=== PATIENT | male | born 1965 | race Caucasian/White ===

== ENCOUNTER → 2021-02-07 13:31 | Outpatient (BNVA) | payer BC, SELFPAY | PROVIDERS: PCP Nurse Practitioner Family; Visit Provider Nurse Practitioner Family | DX: Z12.5 Encounter for screening for malignant neoplasm of prostate (principal); R06.02 Shortness of breath; Z13.6 Encounter for screening for cardiovascular disorders; Z12.11 Encounter for screening for malignant neoplasm of colon; Z12.2 Encounter for screening for malignant neoplasm of respiratory organs; Z00.00 Encounter for general adult medical examination without abnormal findings; Z68.24 Body mass index [BMI] 24.0-24.9, adult | CPT/HCPCS: 80053; 80061; 84443; 85025; G0103 ==

== ENCOUNTER → 2023-04-11 11:19 | Outpatient (BNVA) | payer BC, SELFPAY | PROVIDERS: PCP Nurse Practitioner Family; Visit Provider Nurse Practitioner Family | DX: Z00.00 Encounter for general adult medical examination without abnormal findings (principal); Z13.6 Encounter for screening for cardiovascular disorders; Z12.2 Encounter for screening for malignant neoplasm of respiratory organs; Z12.11 Encounter for screening for malignant neoplasm of colon; F17.200 Nicotine dependence, unspecified, uncomplicated | CPT/HCPCS: 80053; 80061; 84443; 85025 ==

== ENCOUNTER 2023-04-27 13:12 | Outpatient (CLI) | payer BC, SELFPAY ==
--- NOTE | 2023-04-27 13:15 | CT_ITS ---
WS: [id number] LDCT LUNG CANCER SCREENING HISTORY: Z12.2 - Encounter for screening for malignant neoplasm of... TECHNIQUE: Axial imaging performed from the apices to 1 cm below the costophrenic angles. Coronal and sagittal reformats are submitted with axial MIP series. All CT scans at [facility] use at least one of these dose optimization techniques: automated exposure control; mA and/or kV adjustment per patient size (includes targeted exams where dose is matched to clinical indication); or iterativ e reconstruction. DLP: 61.07 mGy.cm DIvol: Mean CTDIvol: 0.90 (mGy) COMPARISON: None available. Diagnostic quality: Satisfactory Lungs: Pulmonary hyperexpansion. No pulmonary mass, nodule or endobronchial lesions. Heart: Normal size heart with no pericardial effusion.. Other findings: Mild atherosclerosis aorta. No mediastinal or hilar adenopathy. No adrenal mass. IMPRESSION: CT/CT lung screening 31817 LUNG-RADS: 1-Negative FOLLOW UP: 12 Month: Continue annual screening with LDCT OTHER FINDINGS (S MODIFIER): None.
== END 2023-04-27 13:13 | disposition home or self-care (01) ==
PROVIDERS: PCP Nurse Practitioner Family; Visit Provider Nurse Practitioner Family
DX: Z12.2 Encounter for screening for malignant neoplasm of respiratory organs (principal); F17.210 Nicotine dependence, cigarettes, uncomplicated
CPT/HCPCS: 71271

== ENCOUNTER 2023-05-16 07:00 | Day surgery (SDC) | payer BC, SELFPAY ==
[2023-05-16 07:10] VITALS: BP 123/72; PULSE 72; RESP 18; TEMP 36.3; O2SAT 97
--- NOTE | 2023-05-16 07:19 | ANES.PREANE2 ---
Pre-Anesthetic Assessment Height/Weight: Height 1.7 m Weight 68.039 kg Temp Pulse Resp BP Pulse Ox O2 Del Method 97.3 F L 72 18 123/72 97 Room Air 05/16/23 07:10 05/16/23 07:10 05/16/23 07:10 05/16/23 07:10 05/16/23 07:10 05/16/23 07:10 Preop Diagnosis: screening Operation Date: 05/16/23 08:00 [place] Procedures p [id number] colon G0121 screen colon A risk Z12.11(Not Applicable) - Nicolas Merida DO Was Beta Gris taken within 24 hours: N/A Was Clonidine taken within 24 hours: N/A Last intake: Intake Last Liquid Date 05/15/23 Last Liquid Time 20:00 Last Solid Date 05/14/23 Last Solid Time 19:00 Last Intake: 22:00 Social Tobacco Exam alert, oriented x 3, clear to auscultation bilaterally and regular rate & rhythm Airway Submandibular: within normal limits Cervical ROM: within normal limits Mallampati: Class II Dentition: full History/ROS No significant history except as noted and No significant complaints Pulmonary None reported CV/HEM None reported None reported Hepatic None reported GI None reported Metabolic None reported Musc/skel None reported Neuropsych None reported Anesthetic Plan Anesthesia: MAC Risk of > 500 ml blood loss (7ml/kg in children): Yes, adequate IV access and fluids planned Medications/Allergies Home Medications Medication Instructions Recorded Confirmed Last Taken Type varenicline 0.5 mg (11)-1 mg (42) See Rx Instructions PO PER PKG DIR 04/11/23 05/14/23 Unknown Rx tablets in a dose pack (Chantix #53 ea Starting Month Box) varenicline 1 mg tablet (Chantix 1 mg PO BID #60 tabs 04/11/23 05/14/23 Unknown Rx Continuing Month Box) Allergies Allergy/AdvReac Type Severity Reaction Status Date / Time No Known Allergies Allergy Verified 04/13/23 09:33 [facility] Anesthesia Family History Father Cancer Denies family history of Diabetes CAD (coronary artery disease) Clotting disorder Hyperlipidemia Chronic kidney disease (CKD) Suicide Bleeding disorder Lung disease Hypertension Stroke Social History Smoking and tobacco/nicotine status: current every day tobacco/nicotine user cigarettes Packs smoked per day: 1 Years cigarettes smoked: 36 [ Other cigarette details: 0.5ppd currently ] Alcohol intake: current Alcohol intake frequency: holidays/special occasions only Alcohol type: beer Substance/Drug Use: never Adopted: No Lives independently: Yes Household members: spouse Housing: House Marital status: Number of children: 5 Number of grandchildren: 13 Highest education level completed: High School Graduate service: No Current occupational status: employed Pets and animals: Yes Current gender identity: Male Data Anesthesia Cardiac Studies: No Data to Display
[2023-05-16] MEDS: sodium chloride 0.9% 1,000 ML 30 ML IV (07:29)
--- NOTE | 2023-05-16 08:00 | PM.HP ---
Providers/Chief Complaint Primary Care Provider: GILL Porras Chief Complaint: Z12.11 History of Present Illness Ankit Diggs is a 58 year old male Review of Systems General: Reports: 10 or more systems reviewed and unremarkable except in HPI and below Medications/Allergies Home Medications Medication Instructions Recorded Confirmed Last Taken Type varenicline 0.5 mg (11)-1 mg (42) See Rx Instructions PO PER PKG DIR 04/11/23 05/14/23 Unknown Rx tablets in a dose pack (Chantix #53 ea Starting Month Box) varenicline 1 mg tablet (Chantix 1 mg PO BID #60 tabs 04/11/23 05/14/23 Unknown Rx Continuing Month Box) Allergies Allergy/AdvReac Type Severity Reaction Status Date / Time No Known Allergies Allergy Verified 04/13/23 09:33 PFSH Acute PFSH: Family History Father Cancer Denies family history of Diabetes CAD (coronary artery disease) Clotting disorder Hyperlipidemia Chronic kidney disease (CKD) Suicide Bleeding disorder Lung disease Hypertension Stroke Social History Smoking and tobacco/nicotine status: current every day tobacco/nicotine user cigarettes Packs smoked per day: 1 Years cigarettes smoked: 36 [ Other cigarette details: 0.5ppd currently ] Alcohol intake: current Alcohol intake frequency: holidays/special occasions only Alcohol type: beer Substance/Drug Use: never Adopted: No Lives independently: Yes Household members: spouse Housing: House Marital status: Number of children: 5 Number of grandchildren: 13 Highest education level completed: High School Graduate service: No Current occupational status: employed Pets and animals: Yes Current gender identity: Male Vitals/I&O/Wt Last Vital Signs Temp 97.3 F L 05/16/23 07:10 Pulse 72 05/16/23 07:10 Resp 18 05/16/23 07:10 BP 123/72 05/16/23 07:10 Pulse Ox 97 05/16/23 07:10 O2 Del Method Room Air 05/16/23 07:10 Weight last 48 hrs Weight 150 lb A&P Assessment and plan (1) Colon cancer screening: Plan Colonoscopy Attestations Medical Necessity Statement*: Home Coding Level of Care Code Acute Code for Chg Fwd Diagnoses Colon cancer screening Z12.11
[2023-05-16 08:17] VITALS: BP 105/67; PULSE 66; RESP 12; TEMP 36.1; O2SAT 98
[2023-05-16 08:25] VITALS: BP 114/79; PULSE 68; RESP 18; O2SAT 98
[2023-05-16 08:32] VITALS: BP 106/75; PULSE 70; RESP 18; O2SAT 99
--- NOTE | 2023-05-16 08:45 | ANE.PACU2 ---
Inpatient post-anesthesia follow up: Airway intact: Yes Vital signs: Temperature 97.0 F Pulse Rate 70 Respiratory Rate 18 Blood Pressure 106/75 Pulse Oximetry 99 Oxygen Delivery Me thod Room Air Oxygen Flow Rate Fraction of Inspir ed Oxygen Hydration adequate: Yes Nausea and vomiting: No Pain level: 1 Mental status: Baseline
== END 2023-05-16 08:45 | disposition home or self-care (01) ==
PROVIDERS: PCP Nurse Practitioner Family; Visit Provider Surgery
PROC: 0DJD8ZZ Inspection of Lower Intestinal Tract, Via Natural or Artificial Opening Endoscopic (ICD-10-PCS; CPT 45378; principal; 2023-05-16 08:00)
DX: Z12.11 Encounter for screening for malignant neoplasm of colon (principal); F17.210 Nicotine dependence, cigarettes, uncomplicated; K63.5 Polyp of colon
CPT/HCPCS: 45385; 88305; J2704; J7030